=== PATIENT | male | born 1975 | race Asian ===

== ENCOUNTER 2021-07-08 11:24 | Emergency (ER) | payer OTHER ==
[~2021-07-08] VITALS: Ht 160 cm; Wt 62.6 kg
[2021-07-08 11:37] VITALS: BP 130/77
--- NOTE | 2021-07-08 13:05 | NUR ---
PATIENT CAME TO ED WITH C/C OF RASH ON BLE AND BUE X 6 MONTHS, PATIENT STATES HE HAS BEEN USING OTC MEDICATIONS WITH NO RELIEF.
--- NOTE | 2021-07-08 13:25 | NUR ---
JENNA MERA AT BEDSIDE FOR EVAL
--- NOTE | 2021-07-08 13:55 | NUR ---
US AT BEDSIDE
--- NOTE | 2021-07-08 14:24 | NUR ---
PA IN ROOM SPEAKING WITH PATIENT
[2021-07-08] MEDS ORDERED: LORA10TA19 PO (14:50)
[2021-07-08] MEDS ORDERED: CEPH-588 PO (14:50)
[2021-07-08] MEDS ORDERED: KEN.5C TP (14:50)
[2021-07-08] MEDS ORDERED: PRED20TA5 PO (14:50)
[2021-07-08] MEDS ORDERED: DIPH25TA53 PO (14:50)
--- NOTE | 2021-07-08 14:58 | NUR ---
Patient discharged with v/s stable. Written and verbal after care instructions given and explained. Patient verbalized understanding. Ambulatory with steady gait. All questions addressed prior to discharge. Advised to follow up with PMD.
== END 2021-07-08 14:58 | disposition home or self-care (01) ==
LOC: MED 11:24
DX: R21 Rash and other nonspecific skin eruption (principal); R03.0 Elevated blood-pressure reading, without diagnosis of hypertension; Z79.899 Other long term (current) drug therapy
CPT/HCPCS: 93971; 99284; Q0092